=== PATIENT | male | born 1985 | race Caucasian/White ===

== ENCOUNTER 2019-12-25 00:44 | Emergency (ER) | payer SELFPAY ==
[2019-12-25 00:53] VITALS: BP 154/99; PULSE 70; RESP 28; TEMP 36.6; O2SAT 98
--- NOTE | 2019-12-25 00:55 | ED_ITS ---
HPI - Seizure General: Chief Complaint: Seizure Stated Complaint: Seizure Time Seen by Provider: 12/25/19 00:48 Source: patient Mode of arrival: ambulatory Limitations: no limitations History of Present Illness: HPI Narrative: 34-year-old male states that he has a history of seizures. He states he took a male enhancement pill this morning and this evening it was called a Rhino. States that since then he has been feeling anxious and had a seizure this evening. He states he is felt shaky and sweaty. Denies any headache. Denies any chest pain. Denies any fevers. He states he takes Keppra daily for his seizures. Associated symptoms: Deny chest pain, chills or fever(s) Review of Systems Const: Denies: fever(s), chills, body aches or change in appetite Eyes: Denies: blurry vision or eye discomfort ENMT: Denies: throat pain or dental pain Card: Denies: chest pain Resp: Denies: dyspnea GI: Denies: abdominal pain, nausea, vomiting or diarrhea : Denies: dysuria Musc: Denies: neck pain or back pain Skin/Breast: Denies: rash Neuro: Reports: seizure-like activity Psych: Denies: depression Sam/Lymph: Denies: easy bruising All/Imm: Denies: urticaria Physical Exam Const: COMMON NORMALS: no acute distress, patient oriented x3 and healthy appearing HENMT: COMMON NORMALS: normocephalic and atraumatic HEAD & SCALP: normocephalic and atraumatic Eye: COMMON NORMALS: Equal, round and reactive pupils present and EOMs intact bilaterally PUPIL: Yes Equal, round and reactive pupils present Neck/C-Spine: COMMON NORMALS: full ROM and supple Chest: COMMONS NORMALS: normal inspection of the chest and normal palpation of entire chest wall Resp: COMMON NORMALS: normal respiratory effort, No retractions, No use of accessory muscles and clear to auscultation bilaterally AUSCULTATION: clear to auscultation bilaterally Cardio: COMMON NORMALS: regular rate, regular rhythm and No murmurs present (Cardio) RATE: regular rate RHYTHM: regular rhythm GI: COMMON NORMALS: Normal to inspection, nondistended, normoactive bowel sounds present, Soft to palpation, non-tender and no masses PALPATION: Yes Soft to palpation Extremity: COMMON NORMALS: normal to inspection and full ROM Neuro: COMMON NORMALS: patient oriented x3, moves all extremities and no focal motor deficits Psych: COMMON NORMALS: mental status grossly normal, Normal thought process present and cooperative THOUGHT PROCESS: Normal thought process present Skin: COMMON NORMALS: no rashes or lesions noted and no wounds GENERAL SKIN EXAM: no rashes or lesions noted Course Vital Signs: Vital signs: Vital Signs Temperature 97.9 F 12/25/19 00:53 Pulse Rate 81 12/25/19 01:12 Respiratory Rate 16 12/25/19 01:12 Blood Pressure 148/91 12/25/19 01:12 Pulse Oximetry 96 12/25/19 01:12 MDM - Seizure MDM Narrative: Medical decision making narrative: Patient presents here with seizure. This could be related to what he took. He is well-appearing here has had no seizure-like activity here. Patient's electrolytes are normal. He is stable for discharge and is to follow-up with PCP in 3 to 5 days return if worsening. Lab Data: Labs: Lab Results 12/25/19 12/25/19 Range/Units 01:02 01:02 WBC 10.8 H (4.0-10.0) 10^3/ uL RBC 5.38 H (4.1-5.3) 10^6/u L Hgb 15.4 (11.7-16.6) g/dL Hct 45.5 (42.0-52.0) % MCV 84.6 (80-94) fL MCH 28.6 (28.0-34.0) pg MCHC 33.8 (30.0-36.0) g/dL RDW 12.4 (12.1-15.1) % Plt Count 278 (130-400) 10^3/c mm MPV 10.5 H (7.4-10.4) fL Neut % (Auto) 83.1 % Lymph % (Auto) 9.2 % Wilkes % (Auto) 6.4 % Eos % (Auto) 0.5 % Baso % (Auto) 0.5 % Neut # (Auto) 8.95 H (1.8-7.7) 10^3/u L Lymph # (Auto) 1.0 (0.8-4.8) 10^3/u L Wilkes # (Auto) 0.7 (0.2-0.9) 10^3/u L Eos # (Auto) 0.1 (0.0-0.8) 10^3/u L Baso # (Auto) 0.1 (0.0-0.1) 10^3/u L Nucleated RBC % (a uto) 0 % Nucleated RBCs # 0.0 /100WBC Sodium 139 (136-145) mmol/L Potassium 3.5 (3.5-5.1) mmol/L Chloride 100 (98-107) mmol/L Carbon Dioxide 26 (22-29) mmol/L Anion Gap 16.5 (5-19) BUN 17 (6-20) mg/dL Creatinine 1.0 (0.7-1.2) mg/dL GFR Calculation 86.1 L (90-130) mL/min Glucose 146 H (65-115) mg/dL Calculated Osmolal ity 292 (285-295) mOsm/k g Calcium 9.5 (8.5-10.5) mg/dL Total Bilirubin 0.5 (0.15-1.2) mg/dL AST 32 (0-40) U/L ALT 19 (0-41) U/L Alkaline Phosphata se 57 (40-130) IU/L Total Protein 7.6 (6.6-8.7) g/dL Albumin 5.0 (3.5-5.2) g/dL Globulin 2.6 (1.3-4.6) g/dL Discharge Plan Discharge Patient Disposition: Home Clinical Impression: Generalized seizure Condition: Stable Discharge Orders: Discharge Order (Routine); Ordered 12/25/19 Ordered By: Tyrese Begum Discharge Diet: Advance as tolerated Discharge Activity: Resume usual activity Patient Instructions: Seizures Stand Alone Forms: Work/School Release Coding Level of Care Code ED Professor Of Chemical Engineering for Taryn Fwd Exam Comprehensive
[2019-12-25 01:10] LABS: Basophils # 0.1 10^3/uL (0.0-0.1); Basophils % 0.5 %; Eosinophils # 0.1 10^3/uL (0.0-0.8); Eosinophils % 0.5 %; Hematocrit 45.5 % (42.0-52.0); Hemoglobin 15.4 g/dL (11.7-16.6); Lymphocytes % 9.2 %; Mean Corpuscular HGB Conc 33.8 g/dL (30.0-36.0); Mean Corpuscular Hemoglobin 28.6 pg (28.0-34.0); Mean Corpuscular Volume 84.6 fL (80-94); Mean Platelet Volume 10.5 fL (7.4-10.4); Monocytes # 0.7 10^3/uL (0.2-0.9); Monocytes % 6.4 %; Neutrophils # 8.95 10^3/uL (1.8-7.7); Neutrophils % 83.1 %; Nucleated Red Blood Cells % 0 %; Platelet Count 278 10^3/cmm (130-400); Red Blood Count 5.38 10^6/uL (4.1-5.3); Red Cell Distribution Width 12.4 % (12.1-15.1); White Blood Count 10.8 10^3/uL (4.0-10.0)
[2019-12-25 01:12] VITALS: BP 148/91; PULSE 81; RESP 16; O2SAT 96
[2019-12-25] MEDS: sodium chloride 0.9% 1,000 ML 999 ML IV (01:12)
[2019-12-25] MEDS: LORazepam 2 mg/mL INJ 1 mL 1 MG IVP (01:12)
[2019-12-25 01:27] LABS: Alanine Aminotransferase 19 U/L (0-41); Alkaline Phosphatase 57 IU/L (40-130); Anion Gap 16.5 (5-19); Aspartate Amino Transferase 32 U/L (0-40); Blood Urea Nitrogen 17 mg/dL (6-20); Calcium 9.5 mg/dL (8.5-10.5); Carbon Dioxide 26 mmol/L (22-29); Chloride 100 mmol/L (98-107); Globulin 2.6 g/dL (1.3-4.6); Glomerular Filtration Rate 86.1 mL/min (90-130); Glucose 146 mg/dL (65-115); Osmolality Calculated 292 mOsm/kg (285-295); Potassium 3.5 mmol/L (3.5-5.1); Sodium 139 mmol/L (136-145); Total Bilirubin 0.5 mg/dL (0.15-1.2); Total Protein 7.6 g/dL (6.6-8.7)
[2019-12-25 02:09] VITALS: BP 123/76; PULSE 87; RESP 16; O2SAT 98
== END 2019-12-25 02:10 | disposition home or self-care (01) ==
PROVIDERS: Emergency Provider Emergency Medicine
DX: G40.89 Other seizures (principal)
CPT/HCPCS: 12345; 80053; 85025; 96365; 96375; 99283; J2060; J7030

== ENCOUNTER 2021-05-08 22:05 | Emergency (ER) | payer SELFPAY ==
[2021-05-08 22:14] VITALS: BP 118/80; PULSE 66; RESP 18; TEMP 36.6; O2SAT 100; BMI 23.6
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
[2021-05-09] MEDS: fluorescein 1 mg Strip EYE-LEFT (02:28)
[2021-05-09] MEDS: tetracaine 0.5% Op Soln 4 mL Btl 1 DROP EYE-LEFT (02:28)
[2021-05-09] MEDS: eye irrigation 30 mL Btl EYE-LEFT (02:51)
[2021-05-09] MEDS: ketorolac 60 mg/2 mL INJ IM (02:51)
[2021-05-09] MEDS: erythromycin Op Oint 1 gm 1 APPLIC EYE-LEFT (02:54)
[2021-05-09 03:04] VITALS: BP 127/75; PULSE 60; RESP 18; O2SAT 100
== END 2021-05-09 03:00 | disposition home or self-care (01) ==
PROVIDERS: Emergency Provider Physician Assistant
DX: S05.02XA Injury of conjunctiva and corneal abrasion without foreign body, left eye, initial encounter (principal); S06.0X0A Concussion without loss of consciousness, initial encounter; Y04.2XXA Assault by strike against or bumped into by another person, initial encounter
CPT/HCPCS: 70450; 70486; 96372; 99283; J1885

== ENCOUNTER 2021-10-11 16:55 | Emergency (ER) | payer MEDICAID, SELFPAY ==
[2021-10-11 17:06] VITALS: BP 132/87; PULSE 75; RESP 16; TEMP 37; O2SAT 97; BMI 23.6
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
== END 2021-10-11 18:52 | disposition home or self-care (01) ==
PROVIDERS: Emergency Provider Nurse Practitioner Family
DX: S01.01XA Laceration without foreign body of scalp, initial encounter (principal); W55.22XA Struck by cow, initial encounter
CPT/HCPCS: 12002; 99283

== ENCOUNTER 2022-01-22 16:28 | Inpatient (IN) | payer MEDICAID, SELFPAY ==
[2022-01-22 16:32] VITALS: BP 120/82; PULSE 73; RESP 18; TEMP 36.8; O2SAT 98; BMI 23.7
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
[2022-01-22 17:46] LABS: Amphetamines Screen Urine Negative (Negative); Barbiturates Screen Urine Negative (Negative); Benzodiazepines Screen Urine Negative (Negative); Cocaine Screen Urine Negative (Negative); Opiate Screen Urine Negative (Negative); PCP Screen Urine Negative (Negative); THC Screen Urine Positive (Negative)
[2022-01-22 17:48] LABS: Basophils % 0.5 %; Eosinophils # 0.1 10^3/uL (0.0-0.8); Eosinophils % 1.7 %; Hematocrit 44.1 % (42.0-52.0); Hemoglobin 15.1 g/dL (11.7-16.6); Lymphocytes # 1.1 10^3/uL (0.8-4.8); Lymphocytes % 18.9 %; Mean Corpuscular HGB Conc 34.2 g/dL (30.0-36.0); Mean Corpuscular Hemoglobin 29.4 pg (28.0-34.0); Monocytes # 0.5 10^3/uL (0.2-0.9); Monocytes % 8.8 %; Neutrophils # 4.15 10^3/uL (1.8-7.7); Neutrophils % 69.8 %; Nucleated Red Blood Cells % 0 %; Platelet Count 184 10^3/cmm (130-400); Red Blood Count 5.13 10^6/uL (4.1-5.3); Red Cell Distribution Width 12.5 % (12.1-15.1); White Blood Count 5.9 10^3/uL (4.0-10.0)
[2022-01-22 18:01] LABS: Alanine Aminotransferase 7 U/L (0-41); Albumin Level 4.4 g/dL (3.5-5.2); Alkaline Phosphatase 58 U/L (40-130); Anion Gap 16.1 (5-19); Aspartate Amino Transferase 15 U/L (0-40); Blood Urea Nitrogen 14 mg/dL (6-20); Calcium 9.3 mg/dL (8.5-10.5); Carbon Dioxide 24 mmol/L (22-29); Chloride 99 mmol/L (98-107); Globulin 2.5 g/dL (1.3-4.6); Glucose 92 mg/dL (65-115); Osmolality Calculated 280 mOsm/kg (285-295); Potassium 4.1 mmol/L (3.5-5.1); Sodium 135 mmol/L (136-145); Thyroid Stimulating Hormone 1.35 uIU/mL (0.27-4.20); Total Bilirubin 0.5 mg/dL (0.15-1.2); Total Protein 6.9 g/dL (6.6-8.7)
[2022-01-22 18:04] LABS: Acetaminophen < 5.0 ug/mL (10-30); Alcohol Level < 10 mg/dL (0-10); Salicylate < 0.3 mg/dL (3-10)
[2022-01-22] MEDS: LORazepam 1 mg Tablet PO (19:22)
--- NOTE | 2022-01-22 20:01 | PC.NURSE ---
Gave report to NPU Tri
[2022-01-22] MEDS: acetaminophen 325 mg Tablet 650 MG PO (21:40)
[2022-01-22 22:00] VITALS: BP 125/80; PULSE 55; RESP 17; TEMP 36.6; O2SAT 94
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
--- NOTE | 2022-01-23 00:22 | PC.NURSE ---
Patient has front teeth missing
--- NOTE | 2022-01-23 00:28 | PC.NURSE ---
Patient has a history of multiple drug use including alcohol,heroin,prescription med(OXY),tobacco and marijuana.
[2022-01-23 06:00] VITALS: BP 120/76; PULSE 60; RESP 18; TEMP 36.6; O2SAT 97
[2022-01-23] MEDS: ibuprofen 600 mg Tablet PO (06:26)
[2022-01-23] MEDS: OLANZapine 5 mg ODT PO (07:42)
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
[2022-01-23 14:00] VITALS: BP 120/78; PULSE 52; RESP 16; TEMP 36.4; O2SAT 97
[2022-01-23] MEDS: fluoxetine 10 mg Capsule 20 MG PO (15:09)
[2022-01-23] MEDS: BuSPIRONE 10 mg Tablet 15 MG PO (18:21)
[2022-01-23] MEDS: mirtazapine 15 mg Tablet PO (19:55)
[2022-01-23 21:59] VITALS: BP 109/72; PULSE 70; RESP 15; TEMP 36.6; O2SAT 96
[2022-01-24 06:00] VITALS: BP 126/82; PULSE 62; RESP 17; TEMP 36.6; O2SAT 99
[2022-01-24] MEDS: fluoxetine 20 mg Capsule PO (09:04)
[2022-01-24] MEDS: BuSPIRONE 10 mg Tablet 15 MG PO (09:04)
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
[2022-01-24 11:34] VITALS: BP 126/82; PULSE 62; RESP 17; TEMP 36.6; O2SAT 99
== END 2022-01-24 12:57 | disposition home or self-care (01) | DRG 881 ==
LOC: ER 18:46 → NP 20:11
PROVIDERS: Admitting Provider Psychiatry & Neurology Psychiatry; Emergency Provider Emergency Medicine; Visit Provider Psychiatry & Neurology Psychiatry
DX: F32.A Depression, unspecified (principal); F43.10 Post-traumatic stress disorder, unspecified; R45.88 Nonsuicidal self-harm; F41.9 Anxiety disorder, unspecified; Z62.810 Personal history of physical and sexual abuse in childhood; Z91.52 Personal history of nonsuicidal self-harm; Z91.49 Other personal history of psychological trauma, not elsewhere classified; Z87.828 Personal history of other (healed) physical injury and trauma; Z23 Encounter for immunization
CPT/HCPCS: 80053; 80306; 80307; 84443; 85025; 90471; 90686; 97150; 97165; 99285

== ENCOUNTER 2022-02-18 15:51 | Emergency (ER) | payer MEDICAID, SELFPAY ==
[2022-02-18 15:53] VITALS: BP 112/72; PULSE 76; RESP 16; TEMP 37; O2SAT 97; BMI 25.0
--- NOTE | 2022-02-18 16:25 | XRR_ITS ---
PROCEDURE INFORMATION: Exam: XR Chest Exam date and time: 02/18/2022 5:35 PM Age: 36 years old Clinical indication: Cough and fever; Additional info: Cough, fever TECHNIQUE: Imaging protocol: Radiologic exam of the chest. Views: 1 view. COMPARISON: No relevant prior studies available. FINDINGS: Lungs: Patchy atelectasis versus pneumonia in the left lingula. Pleural spaces: No pleural effusion. No pneumothorax. Heart/Mediastinum: The cardiac silhouette and mediastinal contours are unremarkable. Bones/joints: Unremarkable for age. XR/XR chest 1V portable [id number] IMPRESSION: Patchy atelectasis versus pneumonia in the left lingula. Recommend clinical correlation. Recommend followup chest imaging to insure resolution of these findings.
--- NOTE | 2022-02-18 16:28 | ED_ITS ---
HPI - URI/Sore Throat General: Chief Complaint: Upper Respiratory Infection Stated Complaint: fever, cough Time Seen by Provider: 02/18/22 16:25 History of Present Illness: 36-year-old male patient comes in today with complaints of illness starting on . Patient has reported coughing to the point of vomiting. Patient appears nontoxic. Patient reports difficulty holding fluids down. Patient has taken a home COVID test that was negative. Patient takes medications for depression and posttraumatic stress syndrome. Patient admits to using marijuana. Associated symptoms: Reports fever(s), nausea and vomiting Review of Systems Const: Reports: fever(s) ENMT: Reports: throat pain Resp: Reports: dyspnea and non-productive cough GI: Reports: nausea and vomiting Skin/Breast: Denies: rash PFSH ED PFSH: Medical History No pertinent family history Surgical History No pertinent past surgical history Physical Exam Const: COMMON NORMALS: alert HENMT: COMMON NORMALS: normocephalic HEAD & SCALP: normocephalic Neck/C-Spine: COMMON NORMALS: full ROM and no meningeal signs Resp: COMMON NORMALS: normal respiratory effort and clear to auscultation bilaterally EFFORT & INSPECTION: Yes able to speak in complete sentences AUSCULTATION: clear to auscultation bilaterally and crackles Laterality: left (Lower lung) Cardio: COMMON NORMALS: regular rate and regular rhythm RATE: regular rate RHYTHM: regular rhythm GI: COMMON NORMALS: Normal to inspection, nondistended, normoactive bowel sounds present Extremity: COMMON NORMALS: no pedal edema Neuro: SENSORIUM/ORIENTATION: Yes alert MENINGEAL SIGNS: Yes no meningeal signs Skin: COMMON NORMALS: no rashes or lesions noted GENERAL SKIN EXAM: no rashes or lesions noted Course Vital Signs: Vital signs: Vital Signs Temperature 98.6 F 02/18/22 15:53 Pulse Rate 85 02/18/22 17:26 Respiratory Rate 20 H 02/18/22 17:36 Blood Pressure 107/75 02/18/22 17:36 Pulse Oximetry 96 02/18/22 17:36 Oxygen Delivery Me thod 02/18/22 17:22 MDM - URI/Sore Throat Medical Decision Making Patient comes in today for complaints of coughing and nausea with vomiting. Patient appears nontoxic. Abdomen soft nontender. Skin is warm and dry. Patient has some crackles in the left lower lung. Differential diagnosis includes pneumonia, viral syndrome, dehydration, gastroenteritis. Chest x-ray notes probable pneumonia in the left lingular area. CBC was unremarkable. CMP noted a sodium of 128. Influenza and COVID test were negative. Patient be treated to her pneumonia of left lower lung. Patient was given 1 g of Rocephin and 500 mg of azithromycin. Patient be continued on cefdinir and azithromycin for 5 days. Patient was written for Zofran and Phenergan DM for symptoms. Patient was encouraged use Tylenol and ibuprofen otherwise. Patient was recommended to follow-up with primary care as needed or return to the ER for worsening symptoms. Lab Data : 02/18/22 16:45 02/18/22 16:45 Radiology Impressions Chest X-Ray 02/18/22 16:25 IMPRESSION: Patchy atelectasis versus pneumonia in the left lingula. Recommend clinical correlation. Recommend followup chest imaging to insure resolution of these findings. Laboratory Results WBC 8.2 10^3/uL (4.0-10.0) 02/18/22 16:45 RBC 5.47 10^6/uL (4.1-5.3) H 02/18/22 16:45 Hgb 15.9 g/dL (11.7-16.6) 02/18/22 16:45 Hct 46.5 % (42.0-52.0) 02/18/22 16:45 MCV 85.0 fl (80-94) 02/18/22 16:45 MCH 29.1 pg (28.0-34.0) 02/18/22 16:45 MCHC 34.2 g/dL (30.0-36.0) 02/18/22 16:45 RDW 12.5 % (12.1-15.1) 02/18/22 16:45 Plt Count 201 10^3/cmm (130-400) 02/18/22 16:45 MPV 10.4 fL (7.4-10.4) 02/18/22 16:45 Neut % (Auto) 77.1 % 02/18/22 16:45 Lymph % (Auto) 9.9 % 02/18/22 16:45 [place] % (Auto) 12.1 % 02/18/22 16:45 Eos % (Auto) 0.0 % 02/18/22 16:45 Baso % (Auto) 0.5 % 02/18/22 16:45 Neut # (Auto) 6.30 10^3/uL (1.8-7.7) 02/18/22 16:45 Lymph # (Auto) 0.8 10^3/uL (0.8-4.8) 02/18/22 16:45 [place] # (Auto) 1.0 10^3/uL (0.2-0.9) H 02/18/22 16:45 Eos # (Auto) 0.0 10^3/uL (0.0-0.8) 02/18/22 16:45 Baso # (Auto) 0.0 10^3/uL (0.0-0.1) 02/18/22 16:45 Nucleated RBC % (auto) 0 % 02/18/22 16:45 Nucleated RBCs # 0.0 /100WBC 02/18/22 16:45 Sodium 128 mmol/L (136-145) L 02/18/22 16:45 Potassium 3.5 mmol/L (3.5-5.1) 02/18/22 16:45 Chloride 92 mmol/L (98-107) L 02/18/22 16:45 Carbon Dioxide 23 mmol/L (22-29) 02/18/22 16:45 Anion Gap 16.5 (5-19) 02/18/22 16:45 BUN 11 mg/dL (6-20) 02/18/22 16:45 Creatinine 0.9 mg/dL (0.7-1.2) 02/18/22 16:45 GFR Calculation 96.0 mL/min (90-130) 02/18/22 16:45 Glucose 95 mg/dL (65-115) 02/18/22 16:45 Calculated Osmolality 265 mOsm/kg (285-295) L 02/18/22 16:45 Calcium 9.7 mg/dL (8.5-10.5) 02/18/22 16:45 Total Bilirubin 0.4 mg/dL (0.15-1.2) 02/18/22 16:45 AST 21 U/L (0-40) 02/18/22 16:45 ALT 13 U/L (0-41) 02/18/22 16:45 Alkaline Phosphatase 80 U/L (40-130) 02/18/22 16:45 C-Reactive Protein 75.1 mg/L (0.0-4.9) H 02/18/22 16:45 Total Protein 8.1 g/dL (6.6-8.7) 02/18/22 16:45 Albumin 4.5 g/dL (3.5-5.2) 02/18/22 16:45 Globulin 3.6 g/dL (1.3-4.6) 02/18/22 16:45 Influenza Type A Ag negative (Negative) 02/18/22 16:50 Influenza Type B Ag negative (Negative) 02/18/22 16:50 SARS-CoV-2 Ag (Rapid) negative (Negative) 02/18/22 16:50 Discharge Plan Discharge Patient Disposition: Home Clinical Impression: Dehydration Pneumonia Qualifiers: Pneumonia type: due to unspecified organism Laterality: left Lung location: unspecified part of lung Qualified Code(s): J18.9 - Pneumonia, unspecified organism Condition: Stable Prescriptions: New promethazine-DM 6.25-15 mg/5 mL syrup 5 ml PO Q6H PRN (Reason: cough) Qty: 118 0RF albuterol sulfate 90 mcg/actuation HFA aerosol inhaler 2 inh inhalation Q4H PRN (Reason: shortness of breath or wheezing) Qty: 8.5 0RF azithromycin 250 mg tablet 250 mg PO DAILY 4 Days Qty: 4 0RF Rx Instructions: start on day 2 of therapy cefdinir 300 mg capsule 300 mg PO BID 5 Days Qty: 10 0RF ondansetron HCl 4 mg tablet 4 mg PO Q8H PRN (Reason: nausea and vomiting) Qty: 10 0RF No Action buspirone 10 mg Tablet 15 mg PO BID 30 Days Qty: 90 1RF mirtazapine 15 mg Tablet 15 mg PO BEDTIME 30 Days Qty: 30 1RF fluoxetine 20 mg Capsule 20 mg PO DAILY 30 Days Qty: 30 1RF Discharge Orders: Discharge ED (Routine); Ordered 02/18/22 Ordered By: Max Donahue Discharge Diet: Usual diet Discharge Activity: Increase activity as tolerated Patient Instructions: Pneumonia (ED) Activity Restrictions/Additional Instructions: Drink plenty of fluids. Use acetaminophen and ibuprofen for pain and discomfort. Use ondansetron for nausea and vomiting. Use Promethazine DM for cough. Take antibiotics as directed. Drink plenty of water with medications. Follow-up with primary care in 1 week for recheck. Return to ED for worsening symptoms such as increased shortness of breath, persistent vomiting, or new concerns. Stand Alone Forms: Work/School Release Coding Level of Care Code ED Emergency Department Aide for Chg Fwd Exam Comprehensive
[2022-02-18 16:52] LABS: Basophils % 0.5 %; Hematocrit 46.5 % (42.0-52.0); Hemoglobin 15.9 g/dL (11.7-16.6); Lymphocytes # 0.8 10^3/uL (0.8-4.8); Lymphocytes % 9.9 %; Mean Corpuscular HGB Conc 34.2 g/dL (30.0-36.0); Mean Corpuscular Hemoglobin 29.1 pg (28.0-34.0); Mean Platelet Volume 10.4 fL (7.4-10.4); Monocytes % 12.1 %; Neutrophils % 77.1 %; Nucleated Red Blood Cells % 0 %; Platelet Count 201 10^3/cmm (130-400); Red Blood Count 5.47 10^6/uL (4.1-5.3); Red Cell Distribution Width 12.5 % (12.1-15.1); White Blood Count 8.2 10^3/uL (4.0-10.0)
[2022-02-18] MEDS: sodium chloride 0.9% 1,000 ML 999 ML IV (16:57)
[2022-02-18] MEDS: ondansetron 2 mg/ML SDV 2 mL 4 MG IVP (16:57)
[2022-02-18 17:16] LABS: Alanine Aminotransferase 13 U/L (0-41); Albumin Level 4.5 g/dL (3.5-5.2); Alkaline Phosphatase 80 U/L (40-130); Anion Gap 16.5 (5-19); Aspartate Amino Transferase 21 U/L (0-40); Blood Urea Nitrogen 11 mg/dL (6-20); C Reactive Protein 75.1 mg/L (0.0-4.9); Calcium 9.7 mg/dL (8.5-10.5); Carbon Dioxide 23 mmol/L (22-29); Chloride 92 mmol/L (98-107); Globulin 3.6 g/dL (1.3-4.6); Glucose 95 mg/dL (65-115); Osmolality Calculated 265 mOsm/kg (285-295); Potassium 3.5 mmol/L (3.5-5.1); Sodium 128 mmol/L (136-145); Total Bilirubin 0.4 mg/dL (0.15-1.2); Total Protein 8.1 g/dL (6.6-8.7)
[2022-02-18 17:17] LABS: Influenza A by IFA negative (Negative); Influenza B by IFA negative (Negative); SARS Covid-2 Antigen negative (Negative)
[2022-02-18] MEDS: ipratropium-albuterol 3 mL Neb INHALATION (17:20)
[2022-02-18 17:22] VITALS: PULSE 78; RESP 18; O2SAT 96
[2022-02-18 17:26] VITALS: PULSE 85
[2022-02-18] MEDS: cefTRIAXone 1,000 MG in sodium chloride 0.9% (plus) 50 ML 100 MG IV (17:28)
[2022-02-18 17:36] VITALS: BP 107/75; RESP 20; O2SAT 96
[2022-02-18] MEDS: azithromycin 500 MG in sodium chloride 0.9% 250 ML 250 MG IV (17:59)
[2022-02-18] MEDS: dexamethasone 10 mg/mL INJ IVP (18:40)
[2022-02-18 18:45] VITALS: BP 104/70; O2SAT 97
[2022-02-18 18:45] LABS: Add Urine Microscopic? YES; Bilirubin Urine 1+ (Negative); Blood Urine 2+ (Negative); Glucose Urine UA Norm (Normal); Ketones Urine Negative (Negative); Leukocyte Esterase Urine Negative (Negative); Nitrate Urine Negative (Negative); Protein Urine Trace (Negative); Specific Gravity, Urine 1.025 (1.005-1.030); Urine Appearance Clear (CLEAR); Urine Color Yellow (Yellow); Urobilinogen Urine 1 mg/dL (Negative); pH Urine 5 (5-7)
[2022-02-18 18:48] LABS: Squamous Epithelial Cell Urine 0-4 /hpf (0-5); WBC Urine 0-4 /hpf (0-5)
[2022-02-18 18:49] LABS: Add Urine Culture? No; Mucus Urine 2+ /hpf
== END 2022-02-18 19:18 | disposition home or self-care (01) ==
PROVIDERS: Emergency Provider Nurse Practitioner Family
DX: J18.9 Pneumonia, unspecified organism (principal); E86.0 Dehydration
CPT/HCPCS: 71045; 80053; 81001; 85025; 86140; 87426; 87804; 94640; 96365; 96367; 96375; 99284; J0456; J0696; J1100; J2405; J7030; J7050